=== PATIENT | male | born 2000 | race Caucasian/White ===

== ENCOUNTER 2021-05-25 21:21 | Emergency (ER) | payer SELFPAY ==
--- NOTE | 2021-05-25 21:25 | XRR_ITS ---
PROCEDURE INFORMATION: Exam: XR Chest Exam date and time: 05/25/2021 9:25 PM Age: 20 years old Clinical indication: Dyspnea; Additional info: SOB TECHNIQUE: Imaging protocol: XR of the chest. Views: 1 view. COMPARISON: No relevant prior studies available. FINDINGS: Lungs: Prominent lung volumes. No airspace disease. Pleural spaces: Unremarkable. No pleural effusion. No pneumothorax. Heart/Mediastinum: Unremarkable. No cardiomegaly. Bones/joints: Unremarkable. XR/XR chest 1V portable [id number] IMPRESSION: No definite acute disease. Bilateral air trapping not excluded.
[2021-05-25 21:35] VITALS: BP 128/88; PULSE 102; RESP 18; TEMP 36.6; O2SAT 99; BMI 18.1
--- NOTE | 2021-05-25 22:17 | W.ED.ASTHMA ---
HPI - Asthma General: Chief Complaint: Asthma Stated Complaint: Cant Catch Breathe Time Seen by Provider: 05/25/21 22:17 History of Present Illness: HPI Narrative: Patient reports increased difficulty breathing today. Patient is visiting the area and has had increased difficulty of breathing. Patient has a history of asthma and he left his inhaler at home. Patient appears in no acute distress. Patient makes occasional gasping type respiration. Skin is warm and dry. Review of Systems General: Reports: 10 or more systems reviewed and unremarkable except in HPI and below Resp: Reports: dyspnea Physical Exam Const: COMMON NORMALS: no acute distress and patient oriented x3 GENERAL APPEARANCE: cooperative HENMT: COMMON NORMALS: normocephalic and Normal external nose present HEAD & SCALP: normal to inspection and normocephalic NOSE: Normal external nose present MOUTH: Normal oral and palatal mucosa present THROAT: posterior oropharynx normal Eye: GENERAL EYE: appearance normal, both eyes and all related structures Neck/C-Spine: COMMON NORMALS: full ROM Lymph: LYMPHATIC: no lymphadenopathy noted Chest: COMMONS NORMALS: normal inspection of the chest Resp: COMMON NORMALS: normal respiratory effort and clear to auscultation bilaterally EFFORT & INSPECTION: Yes able to speak in complete sentences AUSCULTATION: clear to auscultation bilaterally Cardio: COMMON NORMALS: regular rate and regular rhythm RATE: regular rate RHYTHM: regular rhythm GI: COMMON NORMALS: non-tender : COMMON NORMALS: Yes no CVA tenderness BLADDER/KIDNEY EXAM: Yes no CVA tenderness Back/Pelvis: COMMON NORMALS: no CVA tenderness and thoracic and lumbar spine normal to inspection Extremity: COMMON NORMALS: normal to inspection Neuro: COMMON NORMALS: patient oriented x3 and moves all extremities Psych: COMMON NORMALS: mental status grossly normal and cooperative Skin: COMMON NORMALS: no rashes or lesions noted GENERAL SKIN EXAM: no rashes or lesions noted Course Vital Signs: Vital signs: Vital Signs Temperature 97.9 F 05/25/21 21:35 Pulse Rate 101 H 05/25/21 22:18 Respiratory Rate 18 05/25/21 22:18 Blood Pressure 149/80 05/25/21 22:18 Pulse Oximetry 99 05/25/21 22:18 MDM - Asthma MDM Narrative: Medical decision making narrative: Patient presents today with cough and shortness of breath. Patient has asthma and had breath his medication in [place]. On exam patient appears well. Patient is making gasping respirations. Lungs are clear to auscultation pulse oxygen is 98%. Differential diagnosis includes acute exacerbation of asthma, anxiety, pneumonia. COVID-19 test was negative. Chest x-ray was clear. Patient was treated with dexamethasone and albuterol. Patient overall relief of symptoms. Recommend the patient use albuterol as needed. Follow-up with primary care. Lab Data: Labs: Lab Results 05/25/21 Range/Units 22:16 SARS-CoV-2 Ag (Rap id) Negative (Negative) Discharge Plan Discharge Patient Disposition: Home Clinical Impression: Has run out of medications Asthma with acute exacerbation Qualifiers: Asthma severity: moderate Asthma persistence: persistent Qualified Code(s): J45.41 - Moderate persistent asthma with (acute) exacerbation Condition: Stable Discharge Orders: Discharge ED (Routine); Ordered 05/25/21 Ordered By: Martin Presley Discharge Diet: Usual diet Discharge Activity: Increase activity as tolerated Patient Instructions: Asthma (ED), Opioid Safety Activity Restrictions/Additional Instructions: Drink plenty water. Avoid cigarette smoking. Use medication as directed. Follow-up with primary care. 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
[2021-05-25 22:18] VITALS: BP 149/80; PULSE 101; RESP 18; O2SAT 99
[2021-05-25] MEDS: dexamethasone 10 mg/mL INJ IM (22:27)
[2021-05-25 22:40] VITALS: PULSE 97; RESP 18; O2SAT 98
[2021-05-25] MEDS: albuterol 8 gm MDI 2 PUFF INHALATION (22:40)
[2021-05-25 23:00] LABS: SARS Covid-2 Antigen Negative (Negative)
[2021-05-25 23:35] VITALS: O2SAT 96
== END 2021-05-25 23:38 | disposition home or self-care (01) ==
PROVIDERS: Emergency Provider Nurse Practitioner Family
DX: J45.41 Moderate persistent asthma with (acute) exacerbation (principal)
CPT/HCPCS: 71045; 87426; 94640; 96372; 99283; J1100; J3535